=== PATIENT | female | born 1955 | race African-American/Black ===

== ENCOUNTER 2024-03-01 16:30 | Inpatient (IN) | payer OTHER ==
[2024-03-02] MEDS ORDERED: predniSONE 20 MG TAB PO SCH (08:00)
[2024-03-02] MEDS: Fluticasone Propionate Nasal Spray 16 gm Bottle NASAL SCH (08:41)
[2024-03-02] MEDS: Enoxaparin 40 MG (0.4 mL) SYRINGE SC SCH (08:42)
[2024-03-02] MEDS: Metoprolol Tartrate 25 MG TAB PO SCH (08:43)
[2024-03-02] MEDS: hydrALAZINE 25 MG TAB PO SCH (08:43)
[2024-03-02] MEDS: Loratadine 10 MG TAB PO SCH (08:43)
[2024-03-02] MEDS: Folic Acid 1 MG TAB PO SCH (08:43)
[2024-03-02] MEDS: Multivit, Therapeutic 1 TAB PO SCH (08:43)
[2024-03-02] MEDS: predniSONE 20 MG TAB PO SCH (08:44)
[2024-03-02] MEDS: Thiamine 100 MG TAB PO SCH (08:44)
[2024-03-02] MEDS: Aspirin Chewable 81 MG TAB PO SCH (08:44)
[2024-03-02] MEDS: Cyanocobalamin (Vitamin B-12) 1,000 MCG TAB PO SCH (08:44)
[2024-03-02] MEDS: Famotidine 20 MG TAB PO SCH (08:44)
[2024-03-02] MEDS: Cefdinir 300 MG CAP PO SCH (08:45)
[2024-03-02] MEDS ORDERED: LEVOTHYROXINE SODIUM 125 MCG PO SCH (09:00)
[2024-03-02] MEDS ORDERED: hydrALAZINE 25 MG TAB PO SCH (09:00)
[2024-03-02] MEDS ORDERED: CETIRIZINE HCL 10 MG PO SCH (09:00)
[2024-03-02] MEDS ORDERED: Non-Formulary Item 1 EACH (Famotidine [Famotidine] 40 MG Tablet) PO SCH (09:00)
[2024-03-02] MEDS ORDERED: Fluticasone Propionate Nasal Spray 16 gm Bottle NASAL SCH (09:00)
[2024-03-02] MEDS ORDERED: Non-Formulary Item 1 EACH (Budesonide-Formoterol [Symbicort 160-4.5] 160 MG/4.5 MG Aer) IH SCH (09:00)
[2024-03-02] MEDS ORDERED: DONEPEZIL HCL 5 MG PO SCH (09:00)
[2024-03-02] MEDS: Albuterol 200 PUFF (6.7GM INHALER) INH PRN (14:34)
[2024-03-02] MEDS: Guaifenesin DM 100-10/5 ML UDCUP PO PRN (14:56)
[2024-03-02] MEDS: traMADol HCl 50 MG TAB PO PRN (14:56)
[2024-03-02] MEDS: Mometasone/Formoterol 200/5 60 PUFF INH SCH (18:27)
[2024-03-02] MEDS: Atorvastatin Calcium 40 MG TAB PO SCH (21:23)
[2024-03-02] MEDS: Donepezil HCl 10 MG TAB PO SCH (21:23)
[2024-03-02] MEDS: ALPRAZolam 0.5 MG TAB PO SCH (21:23)
[2024-03-03] MEDS: Levothyroxine Sodium 25 MCG TAB PO SCH (05:34)
[2024-03-03] MEDS: Levothyroxine Sodium 100 MCG TAB PO SCH (05:34)
[2024-03-04 05:06] LABS: #Basophils 0.1 thou/uL (0.0-0.2); #Lymphocytes 1.6 thou/uL (1.20-3.40); #Monocytes 0.7 thou/uL (0.11-0.59); #Neutrophils 16.7 thou/uL (1.40-6.50); %Basophils 0.6 % (0.0-1.0); %Lymphocytes 8.5 % (21.0-51.0); %Monocytes 3.6 % (0.0-10.0); %Neutrophils 87.3 % (42.0-75.0); Hematocrit 38.2 % (36.0-47.0); Hemoglobin 11.6 g/dL (12.0-16.0); Mean Corpuscular HGB CONC 30.3 g/dL (32.0-36.0); Mean Corpuscular Hemoglobin 28.9 pg (27.0-31.0); Mean Corpuscular Volume 95.5 fl (78.0-98.0); Platelet Count 326 10x3/uL (130-400); RBC Distribution Width 13.3 % (11.5-14.5); White Blood Cell (WBC) Count 19.2 10x3/uL (4.8-10.8)
[2024-03-04] MEDS: diphenhydrAMINE 25 MG CAP PO PRN (05:06)
[2024-03-04] MEDS: Ipratropium/Albuterol 3 ML NEB NEB PRN (05:06)
[2024-03-04 05:30] LABS: ALT (SGPT) 39 U/L (8-55); AST (SGOT) 21 U/L (5-34); Alkaline Phosphatase 48 U/L (40-110); Anion Gap 15 mmol/L (10-20); BUN (Urea Nitrogen) 25 mg/dL (9.8-20.1); Bilirubin, Total 0.3 mg/dL (0.2-1.2); Calc. Creatinine Clearance 73 mL/min (70-130); Calcium 8.7 mg/dL (7.8-10.44); Carbon Dioxide 34 mmol/L (23-31); Chloride 94 mmol/L (98-107); Estimated GFR 91; Globulin 2.6 g/dL (2.4-3.5); Glucose 130 mg/dL (80-115); Potassium 5.1 mmol/L (3.5-5.1); Protein, Total 5.6 g/dL (5.8-8.1); Sodium 138 mmol/L (136-145)
[2024-03-04] MEDS: Acetaminophen/Codeine 30-300mg Tablet PO PRN (07:55)
[2024-03-04] MEDS: predniSONE 20 MG TAB PO SCH (07:59)
[2024-03-05] MEDS: Acetaminophen 325 MG TAB PO PRN (21:02)
[2024-03-06] MEDS: predniSONE 20 MG TAB PO SCH (09:32)
[2024-03-08 05:19] VITALS: BMI 25.9
[2024-03-08] MEDS: predniSONE 20 MG TAB PO SCH (08:55)
[2024-03-08 09:52] VITALS: BMI 25.9
[2024-03-08 16:10] VITALS: BP 155/73
[2024-03-08 17:32] VITALS: TEMP 99
== END 2024-03-08 21:44 | disposition home or self-care (01) | DRG 947 ==
LOC: BURMED 22:03
PROVIDERS: ADMIT Family Medicine; ATTEND Family Medicine
DX: R53.81 Other malaise (principal); J15.9 Unspecified bacterial pneumonia; J44.0 Chronic obstructive pulmonary disease with (acute) lower respiratory infection; I50.32 Chronic diastolic (congestive) heart failure; J96.11 Chronic respiratory failure with hypoxia; Z99.81 Dependence on supplemental oxygen; I11.0 Hypertensive heart disease with heart failure; E78.5 Hyperlipidemia, unspecified; E03.9 Hypothyroidism, unspecified; D72.829 Elevated white blood cell count, unspecified; I73.9 Peripheral vascular disease, unspecified; I25.10 Atherosclerotic heart disease of native coronary artery without angina pectoris; T38.0X5A Adverse effect of glucocorticoids and synthetic analogues, initial encounter; Z79.890 Hormone replacement therapy; Z86.718 Personal history of other venous thrombosis and embolism; I25.2 Old myocardial infarction; Z79.82 Long term (current) use of aspirin; Z79.899 Other long term (current) drug therapy; Z79.51 Long term (current) use of inhaled steroids; Z88.0 Allergy status to penicillin; Z90.49 Acquired absence of other specified parts of digestive tract; Z87.891 Personal history of nicotine dependence
CPT/HCPCS: 36415; 80053; 85025; 94640; 94664; J1650; J7512; J7620